=== PATIENT | female | born 1960 | race African-American/Black ===

== ENCOUNTER 2021-03-24 18:57 | Emergency (ER) | payer OTHER ==
[~2021-03-24] VITALS: Ht 165.1 cm; Wt 105.9 kg
--- NOTE | 2021-03-24 21:23 | REPVR ---
PROCEDURE INFORMATION: Exam: XR Right Knee Exam date and time: 03/24/2021 7:59 PM Age: 60 years old Clinical indication: Pain; Knee; Right; Additional info: Fell in shower injuring knee TECHNIQUE: Imaging protocol: XR Right knee. Views: 4 or more views. COMPARISON: No relevant prior studies available. FINDINGS: Bones/joints: Slight narrowing of the medial compartment of the knee. Minimal degenerative spurring medially. Soft tissues: There are moderately generous surrounding soft tissues. . IMPRESSION: 1. Early degenerative change in the medial compartment. 2. Otherwise negative right knee. Electronically signed by: David Chapa On 03/24/2021 21:22:23 PM
[2021-03-25 02:09] VITALS: BP 188/77
[2021-03-25] MEDS ORDERED: NAPR-837 PO (02:50)
[2021-03-25] MEDS ORDERED: NAPROXEN 250 MG TAB PO ONE (02:50)
== END 2021-03-25 03:17 | disposition home or self-care (01) ==
LOC: M ED 18:57
DX: M25.561 Pain in right knee (principal); X50.1XXA Overexertion from prolonged static or awkward postures, initial encounter; Y92.009 Unspecified place in unspecified non-institutional (private) residence as the place of occurrence of the external cause; Y93.9 Activity, unspecified; Y99.9 Unspecified external cause status; E11.9 Type 2 diabetes mellitus without complications; I10 Essential (primary) hypertension